=== PATIENT | male | born 1985 | race African-American/Black ===

== ENCOUNTER 2024-02-24 02:42 | Emergency (ER) | payer SELFPAY ==
[~2024-02-24] VITALS: Ht 182.9 cm; Wt 75.0 kg
[2024-02-24 02:45] VITALS: O2SAT 99
[2024-02-24] MEDS: KETOROLAC 15MG/ML VIAL IM ONE (03:26)
[2024-02-24] MEDS ORDERED: AMOX1TAB16 MT (05:17)
[2024-02-24 05:28] VITALS: BP 133/78; PULSE 70; RESP 18; TEMP 36.55848; O2SAT 99
== END 2024-02-24 05:48 | disposition home or self-care (01) ==
LOC: ER 02:42
DX: K04.7 Periapical abscess without sinus (principal)
CPT/HCPCS: 99283; 96372; J1885